=== PATIENT | female | born 1990 | race African-American/Black ===

== ENCOUNTER 2019-04-07 19:13 | Inpatient (IN) ==
[2019-04-07] MEDS ORDERED: BUTORPHANOL 2 MG/ML VIAL IV PRN (19:26)
[2019-04-07] MEDS ORDERED: LACTATED RINGERS 500 ML IV PRN (19:26)
[2019-04-07] MEDS ORDERED: ONDANSETRON 4 MG/2 ML VIAL IV PRN ×2 (19:26→23:15)
[2019-04-07] MEDS ORDERED: FAMOTIDINE 20 MG/2 ML VIAL IV ONE (19:28)
[2019-04-07] MEDS ORDERED: LACTATED RINGERS 1,000 ML IV ONE (19:28)
[2019-04-07] MEDS ORDERED: CITRIC ACID/SODIUM CITRATE 30 ML UDCUP PO ONE (19:28)
[2019-04-07] MEDS ORDERED: PROMETHAZINE 25 MG/1 ML VIAL IM ONE (19:28)
[2019-04-07] MEDS ORDERED: ePHEDrine 50 MG/ML AMP IV PRN (19:28)
[2019-04-07] MEDS ORDERED: NALOXONE 0.4 MG/ML VIAL IV PRN (19:28)
[2019-04-07] MEDS ORDERED: diphenhydrAMINE 50 MG/1 ML VIAL IV PRN ×2 (19:28)
[2019-04-07] MEDS ORDERED: hydrOXYzine HCL 25 MG/1 ML VIAL IM PRN (19:28)
[2019-04-07] MEDS ORDERED: LACTATED RINGERS 1,000 ML IV SCH ×2 (19:30→23:30)
[2019-04-07] MEDS ORDERED: OXYTOCIN/LR 20 UNIT/1,000 ML BAG IV SCH (19:30)
[2019-04-07] MEDS ORDERED: fentaNYL 2 MCG/ROPIV 0.2% EPID 100 ML EPIDURAL SCH (19:30)
[2019-04-07 19:49] LABS: Basophils % 0.4 % (0.0-0.8); Eosinophils # 0.6 10*3/uL (0.0-0.87); Eosinophils % 8.3 % (0.00-10.9); Hematocrit 31.9 VOL% (35.7-47.0); Hemoglobin 10.1 GM/DL (12.0-16.0); Immature Granulocytes % 0.6 %; Immature Granulocytes Absolute 0.04 #; Lymphocytes # 1.6 10*3/uL (1.4-4.0); Lymphocytes % 21.7 % (21.3-54.2); Mean Corpuscular HGB Conc 31.7 GM/DL (32-36); Mean Corpuscular Volume 83.3 FL (87-102); Mean Platelet Volume 11.7 FL (9.6-12.0); Monocytes % 9.8 % (1.7-12.7); Neutrophils % 59.2 % (38.7-73.9); Platelet Count 205 T/CUMM (130-400); Red Blood Count 3.83 MC/CUMM (3.8-5.5); Red Cell Distribution Width 16.4 % (9.3-17.3); White Blood Count 7.2 T/CUMM (4-12)
[2019-04-07 20:04] LABS: Alanine Aminotransferase 16 U/L (13-56); Albumin 2.7 G/DL (3.4-5.0); Alkaline Phosphatase 110 U/L (45-117); Aspartate Amino Transferase 11 U/L (0-37); Bilirubin,Total < 0.39 MG/DL (0.2-1.0); Blood Urea Nitrogen 10 MG/DL (7-18); Calcium 8.9 MG/DL (8.5-10.1); Estimated Glom Filtration Rate 132 ML/MIN; Glucose 91 MG/DL (74-106); Osmolality,Calculated 271.8 MOS/KG (273-304); Total Protein 7.2 G/DL (6.4-8.3)
[2019-04-07 20:33] LABS: Apearance,Urine Slightly Hazy (Clear); Bilirubin,Urine Negative (Negative); Blood, Urine Moderate mg/dL (Negative); Glucose,Urine (UA) Negative (Negative); Ketones,Urine Negative (Negative); Mucus,Urine Occasional /LPF (Occasional); Nitrite,Urine Negative (Negative); Protein,Urine 30 MG/DL; RBC,Urine 53 /HPF (0-4); Squamous Epithelial Cell,Urine Occasional /HPF (0-10); Urine Color Yellow (Yellow); Urine Specific Gravity 1.026 (1.001-1.035); Urine Urobilinogen < 2.0 EU/DL (0.2-1.0); WBC,Urine 3 /HPF (0-6)
[2019-04-07 20:35] LABS: Barbiturates Screen,Urine Negative (Negative); Benzodiazepines Screen,Urine Negative (Negative); Cannabinoid Screen,Urine Positive (Negative); Opiate Screen,Urine Negative (Negative); Phencyclidine Screen,Urine Negative (Negative)
[2019-04-07 21:42] LABS: RPR Confirm - Less than 1 yr REACTIVE (Nonreactive)
[2019-04-07] MEDS ORDERED: METHYLERGONOVINE 0.2 MG/1 ML AMP ONE (22:07)
[2019-04-07] MEDS ORDERED: miSOPROStoL 200 MCG TABLET ONE (22:07)
[2019-04-07] MEDS ORDERED: TRANEXAMIC ACID 1,000 MG/10 ML VIAL ONE (22:07)
[2019-04-07] MEDS ORDERED: CARBOPROST TROMETHAMINE 250 MCG/ML AMP IM ONE (22:08)
[2019-04-07] MEDS ORDERED: SODIUM CHLORIDE 0.9% 0 ML IV ONE (22:08)
[2019-04-07 23:05] LABS: Cord Arterial Blood HCO3 21.9 MMOL/L
[2019-04-07 23:08] LABS: Cord Venous Blood HCO3 22.4 MMOL/L; Cord Venous Blood PCO2 47.5 MMHG
[2019-04-07] MEDS ORDERED: ACETAMINOPHEN 325 MG TABLET PO PRN (23:15)
[2019-04-07] MEDS ORDERED: BISACODYL 10 MG SUPP RECTAL PRN (23:15)
[2019-04-07] MEDS ORDERED: MAGNESIUM HYDROXIDE SUSP 30 ML UDCUP PO PRN (23:15)
[2019-04-08] MEDS ORDERED: diphenhydrAMINE CAP 25 MG CAPSULE PO PRN (00:49)
[2019-04-08] MEDS ORDERED: diphenhydrAMINE 2% CREAM 28 GM TUBE TOP PRN (00:49)
[2019-04-08] MEDS: KETOROLAC 15 MG/1 ML VIAL IV SCH ×4 (01:06→19:00)
[2019-04-08] MEDS ORDERED: BENZOCAINE 20%/MENTHOL 0.5% SPRAY 56 GM CAN TOP PRN (03:00)
[2019-04-08 03:29] LABS: Hepatitis B Surface Ag Quant < 0.10 Index; Hepatitis B Surface Ag Result Negative (Negative)
[2019-04-08] MEDS ORDERED: cefOXitin 2,000 MG in SYRINGE 1 EACH IV SCH (05:30)
[2019-04-08 05:49] LABS: Basophils % 0.3 % (0.0-0.8); Eosinophils # 0.4 10*3/uL (0.0-0.87); Eosinophils % 4.2 % (0.00-10.9); Hematocrit 29.4 VOL% (35.7-47.0); Hemoglobin 9.5 GM/DL (12.0-16.0); Immature Granulocytes % 0.4 %; Immature Granulocytes Absolute 0.04 #; Lymphocytes # 1.5 10*3/uL (1.4-4.0); Lymphocytes % 15.8 % (21.3-54.2); Mean Corpuscular HGB Conc 32.3 GM/DL (32-36); Mean Corpuscular Volume 81.9 FL (87-102); Mean Platelet Volume 11.7 FL (9.6-12.0); Neutrophils % 72.3 % (38.7-73.9); Platelet Count 184 T/CUMM (130-400); Red Blood Count 3.59 MC/CUMM (3.8-5.5); Red Cell Distribution Width 16.3 % (9.3-17.3); White Blood Count 9.3 T/CUMM (4-12)
[2019-04-08] MEDS: cefOXitin 2,000 MG in SYRINGE 1 EACH IV SCH ×3 (05:50→18:26)
[2019-04-08] MEDS: DOCUSATE SODIUM 100 MG CAPSULE PO SCH ×2 (10:00→23:00)
[2019-04-08] MEDS ORDERED: SODIUM CHLORIDE 0.9% 50 ML IV ONE ×2 (11:36→18:19)
[2019-04-09] MEDS ORDERED: IBUPROFEN 800 MG TABLET PO PRN
[2019-04-09] MEDS: cefOXitin 2,000 MG in SYRINGE 1 EACH IV SCH ×2 (00:30→06:31)
[2019-04-09] MEDS: DOCUSATE SODIUM 100 MG CAPSULE PO SCH (09:10)
[2019-04-09 14:28] VITALS: BP 115/82
== END 2019-04-09 12:00 | disposition home or self-care (01) | DRG 560 ==
LOC: N.LDOUT 19:13 → N.LD 19:15 → N.OB 04-08 00:33
PROVIDERS: ADMIT Obstetrics & Gynecology; ATTEND Obstetrics & Gynecology

== ENCOUNTER 2021-01-09 11:09 | Inpatient (IN) ==
[2021-01-09] MEDS ORDERED: BUTORPHANOL 2 MG/ML VIAL IV PRN (11:33)
[2021-01-09] MEDS ORDERED: ONDANSETRON 4 MG/2 ML VIAL IV PRN ×2 (11:33→23:09)
[2021-01-09] MEDS ORDERED: MEPERIDINE 50 MG/1 ML VIAL IV PRN (11:33)
[2021-01-09] MEDS ORDERED: hydrOXYzine HCL 25 MG/1 ML VIAL IM PRN (11:52)
[2021-01-09] MEDS ORDERED: PROMETHAZINE 25 MG/1 ML VIAL IM PRN (11:52)
[2021-01-09] MEDS ORDERED: FAMOTIDINE 20 MG/2 ML VIAL IV ONE (11:52)
[2021-01-09] MEDS ORDERED: ePHEDrine 50 MG/ML VIAL IV PRN (11:52)
[2021-01-09] MEDS ORDERED: CITRIC ACID/SODIUM CITRATE 30 ML UDCUP PO ONE (11:52)
[2021-01-09] MEDS ORDERED: diphenhydrAMINE 50 MG/1 ML VIAL IV PRN (11:52)
[2021-01-09] MEDS ORDERED: NALOXONE 0.4 MG/ML VIAL IV PRN (11:52)
[2021-01-09] MEDS: LACTATED RINGERS 1,000 ML IV SCH ×2 (11:55→16:42)
[2021-01-09] MEDS ORDERED: miSOPROStoL 200 MCG TABLET PO PRN (11:57)
[2021-01-09] MEDS ORDERED: METHYLERGONOVINE 0.2 MG/1 ML AMP IM PRN (11:57)
[2021-01-09] MEDS ORDERED: CARBOPROST TROMETHAMINE 250 MCG/ML AMP IM PRN (11:57)
[2021-01-09] MEDS ORDERED: fentaNYL 2 MCG/ROPIV 0.2% EPID 100 ML EPIDURAL SCH (12:00)
[2021-01-09 12:13] LABS: Basophils % 0.4 % (0.0-0.8); Eosinophils # 0.1 10*3/uL (0.0-0.87); Eosinophils % 1.5 % (0.00-10.9); Hematocrit 31.5 VOL% (35.7-47.0); Hemoglobin 10.3 GM/DL (12.0-16.0); Immature Granulocytes % 0.6 %; Immature Granulocytes Absolute 0.04 #; Lymphocytes # 1.4 10*3/uL (1.4-4.0); Lymphocytes % 19.8 % (21.3-54.2); Mean Corpuscular HGB Conc 32.7 GM/DL (32-36); Mean Corpuscular Volume 85.6 FL (87-102); Mean Platelet Volume 11.4 FL (9.6-12.0); Monocytes % 7.6 % (1.7-12.7); Neutrophils % 70.1 % (38.7-73.9); Platelet Count 225 T/CUMM (130-400); Red Blood Count 3.68 MC/CUMM (3.8-5.5); White Blood Count 7.1 T/CUMM (4-12)
[2021-01-09] MEDS ORDERED: AMPICILLIN INJ 2,000 MG in SODIUM CHLORIDE 0.9% 100 ML IV ONE (12:30)
[2021-01-09 12:33] LABS: Alanine Aminotransferase 14 U/L (13-56); Albumin 2.7 G/DL (3.4-5.0); Alkaline Phosphatase 133 U/L (45-117); Aspartate Amino Transferase 12 U/L (0-37); Bilirubin,Total < 0.39 MG/DL (0.20-1.00); Blood Urea Nitrogen 8 MG/DL (7-18); Calcium 9.3 MG/DL (8.5-10.1); Carbon Dioxide 25 MMOL/L (21-32); Estimated Glom Filtration Rate 144 ML/MIN; Glucose 90 MG/DL (74-106); Sodium 136 MMOL/L (136-145); Total Protein 7.1 G/DL (6.4-8.2)
[2021-01-09] MEDS ORDERED: OXYTOCIN/LR 20 UNIT/1,000 ML BAG IV SCH (13:05)
[2021-01-09 13:51] LABS: RPR Confirm - Less than 1 yr NONREACTIVE (Nonreactive)
[2021-01-09 15:12] LABS: Bilirubin,Urine Negative (Negative); Blood, Urine Small mg/dL (Negative); Glucose,Urine (UA) Negative (Negative); Ketones,Urine Negative (Negative); Nitrite,Urine Negative (Negative); Protein,Urine Negative; RBC,Urine 16 /HPF (0-4); Squamous Epithelial Cell,Urine Few /HPF (0-10); Urine Appearance CLOUDY (Clear); Urine Color Yellow (Yellow); Urine Specific Gravity 1.011 (1.001-1.035); Urine Urobilinogen < 2.0 EU/DL (0.2-1.0)
[2021-01-09 15:23] LABS: Barbiturates Screen,Urine Negative (Negative); Benzodiazepines Screen,Urine Negative (Negative); Cannabinoid Screen,Urine Positive (Negative); Opiate Screen,Urine Negative (Negative); Phencyclidine Screen,Urine Negative (Negative)
[2021-01-09] MEDS ORDERED: AMPICILLIN INJ 1,000 MG in SODIUM CHLORIDE 0.9% 100 ML IV SCH (16:00)
[2021-01-09] MEDS: AMPICILLIN INJ 1,000 MG in SODIUM CHLORIDE 0.9% 100 ML IV SCH ×2 (17:50→20:51)
[2021-01-09] MEDS ORDERED: CARBOPROST TROMETHAMINE 250 MCG/ML AMP IM ONE (22:01)
[2021-01-09] MEDS ORDERED: TRANEXAMIC ACID 1,000 MG/10 ML VIAL ONE (22:01)
[2021-01-09] MEDS ORDERED: METHYLERGONOVINE 0.2 MG/1 ML AMP ONE (22:01)
[2021-01-09] MEDS ORDERED: miSOPROStoL 200 MCG TABLET ONE (22:01)
[2021-01-09 22:38] LABS: Cord Arterial Blood HCO3 23.6 MMOL/L
[2021-01-09 22:42] LABS: Cord Venous Blood HCO3 24.4 MMOL/L; Cord Venous Blood PCO2 47.2 MMHG; Cord Venous Blood PO2 30.9
[2021-01-09] MEDS ORDERED: IBUPROFEN 800 MG TABLET PO PRN (23:09)
[2021-01-09] MEDS ORDERED: MAGNESIUM HYDROXIDE SUSP 30 ML UDCUP PO PRN (23:09)
[2021-01-09] MEDS ORDERED: ACETAMINOPHEN 500 MG TABLET PO PRN (23:09)
[2021-01-09] MEDS ORDERED: BISACODYL 10 MG SUPP RECTAL PRN (23:09)
[2021-01-09] MEDS ORDERED: LACTATED RINGERS 1,000 ML IV SCH (23:30)
[2021-01-10] MEDS ORDERED: BENZOCAINE 20%/MENTHOL 0.5% SPRAY 56 GM CAN TOP PRN (00:53)
[2021-01-10 05:54] LABS: Basophils % 0.3 % (0.0-0.8); Eosinophils # 0.1 10*3/uL (0.0-0.87); Eosinophils % 0.9 % (0.00-10.9); Hematocrit 28.4 VOL% (35.7-47.0); Hemoglobin 9.2 GM/DL (12.0-16.0); Immature Granulocytes % 0.6 %; Immature Granulocytes Absolute 0.06 #; Lymphocytes # 1.4 10*3/uL (1.4-4.0); Lymphocytes % 13.4 % (21.3-54.2); Mean Corpuscular HGB Conc 32.4 GM/DL (32-36); Mean Corpuscular Volume 83.5 FL (87-102); Mean Platelet Volume 10.9 FL (9.6-12.0); Monocytes % 6.3 % (1.7-12.7); Neutrophils % 78.5 % (38.7-73.9); Platelet Count 191 T/CUMM (130-400); Red Cell Distribution Width 14.9 % (9.3-17.3); White Blood Count 10.1 T/CUMM (4-12)
[2021-01-10] MEDS: DOCUSATE SODIUM 100 MG CAPSULE PO SCH ×2 (08:21→21:26)
[2021-01-10] MEDS ORDERED: metroNIDAZOLE 500 MG TABLET PO ONE (08:24)
[2021-01-10] MEDS: IRON (CARBONYL)/VIT C/B12/FA TABLET PO SCH (09:27)
[2021-01-11] MEDS: IRON (CARBONYL)/VIT C/B12/FA TABLET PO SCH (08:27)
[2021-01-11] MEDS: DOCUSATE SODIUM 100 MG CAPSULE PO SCH (08:28)
[2021-01-11 10:39] VITALS: BP 112/88
== END 2021-01-11 13:25 | disposition home or self-care (01) | DRG 560 ==
LOC: N.LDOUT 11:09 → N.LD 11:13 → N.OB 01-10 00:25
PROVIDERS: ADMIT Obstetrics & Gynecology; ATTEND Nurse Practitioner